=== PATIENT | male | born 1990 | race Caucasian/White ===

== ENCOUNTER 2017-09-16 19:06 | Inpatient (IN) | payer MEDICAID ==
[~2017-09-16] VITALS: Ht 170.2 cm; Wt 67.0 kg
[~2017-09-16 19:06] MED LIST: CEPH500C5 PO; CYCL-1 PO; HYDR-569 PO; ONDA4TAB12 PO; SULF1TAB49 PO
[2017-09-16] MEDS ORDERED: TETanus/Pertussis (Acell)/Diphther VAC/PF (Tdap-Adult) 0.5ml syringe IMVAC ONE (20:50)
[2017-09-16] MEDS ORDERED: CefTRIAXone 2gm/D5W 50ml 50 ML IV ONE (20:50)
[2017-09-16] MEDS ORDERED: vancomycin/NS 1 GM ADD-VANTAGE 250 ML X 1 DOSE IV ONE (20:55)
[2017-09-16] MEDS ORDERED: temazepam 15mg capsule PO PRN (21:00)
[2017-09-16] MEDS ORDERED: CEPH250T PO (21:41)
[2017-09-16] MEDS ORDERED: SULF1TAB49 PO (21:41)
[2017-09-16 21:51] LABS: BASOPHILS % (AUTO) 0.3 % (0-1); EOSINOPHILS # (AUTO) 0.2 X10'3 (0-0.9); EOSINOPHILS % (AUTO) 1.8 % (0-6); HEMATOCRIT 45.6 % (42.0-52.0); HEMOGLOBIN 15.7 g/dl (14.0-17.9); LYMPHOCYTES # (AUTO) 2.7 X10'3 (1.1-4.8); LYMPHOCYTES % (AUTO) 20.8 % (21-51); MEAN CORPUSCULAR HEMOGLOBIN 29.6 PG (27.0-31.0); MEAN CORPUSCULAR HGB CONC 34.5 % (33.0-36.5); MEAN CORPUSCULAR VOLUME 85.9 FL (78-98); MEAN PLATELET VOLUME 7.2 FL (7.4-10.4); MONOCYTES # (AUTO) 1.2 X10'3 (0-0.9); MONOCYTES % (AUTO) 9.5 % (2-12); NEUTROPHILS # (AUTO) 8.8 X10'3 (1.8-7.7); NEUTROPHILS % (AUTO) 67.6 % (42-75); PLATELET COUNT 169 X10'3 (140-440); RED BLOOD COUNT 5.31 X10'6 (4.70-6.10); RED CELL DISTRIBUTION WIDTH 13.6 % (11.5-14.5); WHITE BLOOD COUNT 13.1 X10'3 (4.5-11.0)
[2017-09-16 22:11] LABS: ALANINE AMINOTRANSFERASE 26 U/L (12-78); ALBUMIN 4.1 G/DL (3.4-5.0); ALBUMIN/GLOBULIN RATIO 1.3 (1.1-1.5); ALKALINE PHOSPHATASE 52 IU/L (46-116); ANION GAP 10 (8-16); ASPARTATE AMINO TRANSFERASE 20 U/L (10-37); BILIRUBIN,TOTAL 0.4 MG/DL (0.1-1.0); BLOOD UREA NITROGEN 12 MG/DL (7-18); BUN/CREATININE RATIO 11.5 (5.4-32.0); CALCIUM 9.2 MG/DL (8.5-10.1); CHLORIDE 102 MMOL/L (99-107); CREATININE 1.04 MG/DL (0.60-1.10); GLUCOSE 100 MG/DL (70-104); POTASSIUM 4.1 MMOL/L (3.5-5.1); SODIUM 138 MMOL/L (135-145); TOTAL CARBON DIOXIDE 25.7 MMOL/L (24-32); TOTAL PROTEIN 7.3 G/DL (6.4-8.2); eGFR 86 ML/MIN
[2017-09-16] MEDS ORDERED: methylPREDNISolone sod succ 125mg/2ml vial IV ONE (22:35)
[2017-09-16] MEDS ORDERED: HYDROcodone/acetaminophen 5mg/325mg tablet PO ONE (22:35)
[2017-09-16] MEDS ORDERED: famotidine/PF 10 mg/ml inj IV ONE (22:35)
[2017-09-16] MEDS ORDERED: diphenhydrAMINE 50 mg/ml inj IV ONE (22:35)
[2017-09-16] MEDS ORDERED: famotidine 10mg tablet PO STA (22:49)
[2017-09-16] MEDS ORDERED: famotidine 20mg tablet PO ONE (23:05)
[2017-09-16] MEDS ORDERED: acetaminophen 650mg rectal suppository RC PRN (23:40)
[2017-09-16] MEDS ORDERED: diphenhydrAMINE 25mg capsule PO PRN (23:40)
[2017-09-16] MEDS ORDERED: HYDROcodone/acetaminophen 5mg/325mg tablet PO PRN (23:40)
[2017-09-16] MEDS ORDERED: HYDROmorphone inj. 0.5 MG/0.5 ML DISP.SYRIN IV PRN ×2 (23:40)
[2017-09-16] MEDS ORDERED: HYDROcodone/acetaminophen 10/325mg tab PO PRN (23:40)
[2017-09-16] MEDS ORDERED: mag hydrox/Alum hydrox/simeth 30ml oral suspension PO PRN (23:40)
[2017-09-16] MEDS ORDERED: diphenhydrAMINE 50 mg/ml inj IV PRN (23:40)
[2017-09-16] MEDS ORDERED: morphine 4 MG/ML inj SYRINge IV PRN ×2 (23:40)
[2017-09-16] MEDS ORDERED: bisacodyl 10mg suppository rectal RC PRN (23:40)
[2017-09-16] MEDS ORDERED: magnesium hydroxide 30ml (MOM) UD suspension PO PRN (23:40)
[2017-09-16] MEDS ORDERED: metoclopramide 5 mg/ml inj IV PRN (23:40)
[2017-09-16] MEDS ORDERED: acetaminophen 325mg tablet PO PRN ×2 (23:40)
[2017-09-16] MEDS ORDERED: ondansetron/PF 4mg/2ml inj IV PRN (23:40)
[2017-09-17 00:05] LABS: MAGNESIUM 2.2 MG/DL (1.5-2.4)
[2017-09-17 00:07] LABS: INR 2.9 INR; PARTIAL THROMBOPLASTIN TIME 41 SECONDS (22-32); PROTHROMBIN TIME 28.8 SECONDS (9.0-12.0)
[2017-09-17 00:16] VITALS: BP 143/86
[2017-09-17] MEDS: ceFAZolin 1GM/D5W- ADD-VANTAGE 50 ML IV SCH ×2 (00:52→07:59)
[2017-09-17] MEDS: fluconazole 100mg tablet PO SCH ×2 (00:52→08:58)
[2017-09-17 01:31] LABS: CLARITY,URINE CLEAR (Clear); COLOR,URINE YELLOW (Yellow); GLUCOSE, URINE NEGATIVE (Neg); KETONES,URINE NEGATIVE (Neg); LEUKOCYTE ESTERASE ,URINE NEGATIVE (Neg); NITRITES, URINE NEGATIVE (Neg); OCCULT BLOOD,URINE TRACE-INTACT (Neg); PH,URINE 6.5 (4.8-8.0); PROTEIN,URINE NEGATIVE (Neg); UROBILINOGEN,URINE 0.2 E.U/dL (0.2-1.0)
[2017-09-17 01:34] LABS: UA COLLECTION TYPE CLN CATCH MIDSTREAM
[2017-09-17 01:37] LABS: BACTERIA,URINE NONE SEEN /HPF (Neg); SQUAMOUS EPITHELIAL CELL,UR NONE SEEN /LPF (FEW)
[2017-09-17 01:38] LABS: RBC,URINE 0-2 /HPF (0-2); WBC,URINE NONE SEEN /HPF (0-4)
[2017-09-17 05:56] LABS: BASOPHILS % (AUTO) 0.2 % (0-1); EOSINOPHILS # (AUTO) 0.1 X10'3 (0-0.9); EOSINOPHILS % (AUTO) 1.3 % (0-6); HEMATOCRIT 48.9 % (42.0-52.0); HEMOGLOBIN 16.7 g/dl (14.0-17.9); LYMPHOCYTES # (AUTO) 1.1 X10'3 (1.1-4.8); LYMPHOCYTES % (AUTO) 9.3 % (21-51); MEAN CORPUSCULAR HEMOGLOBIN 29.8 PG (27.0-31.0); MEAN CORPUSCULAR HGB CONC 34.1 % (33.0-36.5); MEAN CORPUSCULAR VOLUME 87.5 FL (78-98); MEAN PLATELET VOLUME 7.4 FL (7.4-10.4); MONOCYTES # (AUTO) 0.1 X10'3 (0-0.9); MONOCYTES % (AUTO) 1.2 % (2-12); PLATELET COUNT 182 X10'3 (140-440); RED BLOOD COUNT 5.59 X10'6 (4.70-6.10); RED CELL DISTRIBUTION WIDTH 13.7 % (11.5-14.5); WHITE BLOOD COUNT 11.4 X10'3 (4.5-11.0)
[2017-09-17 06:00] VITALS: BP 109/67
[2017-09-17 06:22] LABS: ALANINE AMINOTRANSFERASE 29 U/L (12-78); ALBUMIN 4.1 G/DL (3.4-5.0); ALBUMIN/GLOBULIN RATIO 1.2 (1.1-1.5); ALKALINE PHOSPHATASE 54 IU/L (46-116); ANION GAP 10 (8-16); ASPARTATE AMINO TRANSFERASE 21 U/L (10-37); BILIRUBIN,TOTAL 0.3 MG/DL (0.1-1.0); BLOOD UREA NITROGEN 12 MG/DL (7-18); BUN/CREATININE RATIO 11.2 (5.4-32.0); CALCIUM 9.5 MG/DL (8.5-10.1); CHLORIDE 104 MMOL/L (99-107); CREATININE 1.07 MG/DL (0.60-1.10); GLUCOSE 157 MG/DL (70-104); POTASSIUM 4.8 MMOL/L (3.5-5.1); SODIUM 140 MMOL/L (135-145); TOTAL CARBON DIOXIDE 26.1 MMOL/L (24-32); TOTAL PROTEIN 7.6 G/DL (6.4-8.2); eGFR 82 ML/MIN
[2017-09-17] MEDS: docusate sod 100mg capsule PO SCH ×2 (07:58→20:34)
[2017-09-17] MEDS: lactobacillus rhamnosus 10,000 MMU CELLS/CAPSULE PO SCH ×2 (07:58→20:35)
[2017-09-17] MEDS ORDERED: cephalexin 500mg capsule PO SCH (08:00)
[2017-09-17] MEDS ORDERED: sulfamethoxazole/trimethoprim DS (800/160mg) tablet PO SCH (08:00)
[2017-09-17] MEDS ORDERED: heparin, porcine 5000 units/ml vial SQ SCH (08:00)
[2017-09-17] MEDS ORDERED: CEPHALEXIN MONOHYDRATE PO SCH (08:00)
[2017-09-17] MEDS: clotrimazole topical cream 15gm tube TP SCH ×2 (08:06→20:35)
[2017-09-17 10:00] VITALS: BP 123/73
[2017-09-17 17:20] LABS: INR 2.3 INR; PROTHROMBIN TIME 23.4 SECONDS (9.0-12.0)
[2017-09-17] MEDS ORDERED: phytonadione inj. 10 MG in normal saline 100ml IV soln 99 ML IV ONE (17:30)
[2017-09-17 18:36] VITALS: BP 128/74
[2017-09-17 22:32] VITALS: BP 127/61
[2017-09-18 06:00] VITALS: BP 130/91
[2017-09-18 06:04] LABS: INR 1.5 INR; PARTIAL THROMBOPLASTIN TIME 33 SECONDS (22-32); PROTHROMBIN TIME 15.7 SECONDS (9.0-12.0)
[2017-09-18 06:08] LABS: BASOPHILS % (AUTO) 0.2 % (0-1); EOSINOPHILS # (AUTO) 0.1 X10'3 (0-0.9); EOSINOPHILS % (AUTO) 1.1 % (0-6); HEMATOCRIT 49.7 % (42.0-52.0); LYMPHOCYTES # (AUTO) 2.6 X10'3 (1.1-4.8); LYMPHOCYTES % (AUTO) 18.7 % (21-51); MEAN CORPUSCULAR HEMOGLOBIN 29.9 PG (27.0-31.0); MEAN CORPUSCULAR HGB CONC 34.2 % (33.0-36.5); MEAN CORPUSCULAR VOLUME 87.4 FL (78-98); MEAN PLATELET VOLUME 7.6 FL (7.4-10.4); MONOCYTES # (AUTO) 1.1 X10'3 (0-0.9); MONOCYTES % (AUTO) 8.1 % (2-12); NEUTROPHILS % (AUTO) 71.9 % (42-75); PLATELET COUNT 199 X10'3 (140-440); RED BLOOD COUNT 5.69 X10'6 (4.70-6.10); RED CELL DISTRIBUTION WIDTH 13.9 % (11.5-14.5)
[2017-09-18 06:16] LABS: ALANINE AMINOTRANSFERASE 26 U/L (12-78); ALBUMIN/GLOBULIN RATIO 1.1 (1.1-1.5); ALKALINE PHOSPHATASE 54 IU/L (46-116); ANION GAP 10 (8-16); ASPARTATE AMINO TRANSFERASE 20 U/L (10-37); BILIRUBIN,TOTAL 0.6 MG/DL (0.1-1.0); BLOOD UREA NITROGEN 23 MG/DL (7-18); BUN/CREATININE RATIO 24.2 (5.4-32.0); CALCIUM 9.3 MG/DL (8.5-10.1); CHLORIDE 105 MMOL/L (99-107); CREATININE 0.95 MG/DL (0.60-1.10); GLUCOSE 106 MG/DL (70-104); POTASSIUM 4.3 MMOL/L (3.5-5.1); SODIUM 140 MMOL/L (135-145); TOTAL CARBON DIOXIDE 24.7 MMOL/L (24-32); TOTAL PROTEIN 7.6 G/DL (6.4-8.2); eGFR > 90 ML/MIN
[2017-09-18] MEDS: docusate sod 100mg capsule PO SCH (07:27)
[2017-09-18] MEDS: lactobacillus rhamnosus 10,000 MMU CELLS/CAPSULE PO SCH (07:27)
[2017-09-18 10:17] VITALS: BP 116/77
[2017-09-18] MEDS ORDERED: sulfamethoxazole/trimethoprim DS (800/160mg) tablet PO SCH (12:10)
[2017-09-18] MEDS ORDERED: iohexol 300mg/ml 100ml inj. ONE (15:02)
[2017-09-18] MEDS: clotrimazole topical cream 15gm tube TP SCH (15:31)
== END 2017-09-18 16:45 | disposition left against medical advice (07) | DRG 383 ==
LOC: ER 19:07 → ED HOLD 23:25 → EDBEDREQ 23:51 → ORTHO 4S 09-17 00:07
PROVIDERS: ADMIT Family Medicine; ATTEND Family Medicine
PROC: BQ2D1ZZ Computerized Tomography (CT Scan) of Right Lower Leg using Low Osmolar Contrast (ICD-10-PCS; principal; 2017-09-18)
DX: L03.115 Cellulitis of right lower limb (principal); D68.9 Coagulation defect, unspecified; F31.9 Bipolar disorder, unspecified; F12.90 Cannabis use, unspecified, uncomplicated; E56.1 Deficiency of vitamin K; B35.3 Tinea pedis; M79.5 Residual foreign body in soft tissue; Z53.21 Procedure and treatment not carried out due to patient leaving prior to being seen by health care provider; Z88.8 Allergy status to other drugs, medicaments and biological substances; Z79.899 Other long term (current) drug therapy
CPT/HCPCS: 36415; 73630; 73701; 80053; 81001; 83605; 83735; 85025; 85384; 85610; 85730; 86146; 86147; 86803; 87040; 87070; 87075; 87102; 90715; J0690; J0696; J1200; J2930; J3370; J3430; J3490; J7030; Q9967

== ENCOUNTER 2019-10-11 08:22 | Emergency (ER) | payer MEDICAID ==
[~2019-10-11] VITALS: Ht 172.7 cm; Wt 68.0 kg
[~2019-10-11 08:22] MED LIST changes: +CEPH250T PO; -CEPH500C5 PO; -CYCL-1 PO; -HYDR-569 PO; -ONDA4TAB12 PO
[2019-10-11] MEDS ORDERED: normal saline 1000ML IV soln IVB ONE (09:05)
[2019-10-11] MEDS ORDERED: ondansetron/PF 4mg/2ml inj IV ONE (09:05)
[2019-10-11] MEDS ORDERED: meclizine 12.5mg tablet PO ONE (09:05)
[2019-10-11 09:34] LABS: BASOPHILS # (AUTO) 0.1 X10'3 (0-0.2); BASOPHILS % (AUTO) 0.8 % (0-1); EOSINOPHILS # (AUTO) 0.1 X10'3 (0-0.9); HEMATOCRIT 50.3 % (42.0-52.0); HEMOGLOBIN 17.1 g/dl (14.0-17.9); LYMPHOCYTES # (AUTO) 2.1 X10'3 (1.1-4.8); LYMPHOCYTES % (AUTO) 29.1 % (21-51); MEAN CORPUSCULAR HEMOGLOBIN 29.4 PG (27.0-31.0); MEAN CORPUSCULAR VOLUME 86.6 FL (78-98); MEAN PLATELET VOLUME 7.1 FL (7.4-10.4); MONOCYTES # (AUTO) 0.8 X10'3 (0-0.9); MONOCYTES % (AUTO) 11.5 % (2-12); NEUTROPHILS # (AUTO) 4.1 X10'3 (1.8-7.7); NEUTROPHILS % (AUTO) 56.6 % (42-75); PLATELET COUNT 190 X10'3 (140-440); RED BLOOD COUNT 5.81 X10'6 (4.70-6.10); RED CELL DISTRIBUTION WIDTH 14.1 % (11.5-14.5); WHITE BLOOD COUNT 7.2 X10'3 (4.5-11.0)
[2019-10-11 09:41] LABS: ALANINE AMINOTRANSFERASE 20 U/L (12-78); ALBUMIN 4.3 G/DL (3.4-5.0); ALBUMIN/GLOBULIN RATIO 1.4 (1.1-1.5); ALKALINE PHOSPHATASE 53 IU/L (46-116); ANION GAP 8 (8-16); ASPARTATE AMINO TRANSFERASE 18 U/L (10-37); BILIRUBIN,TOTAL 0.4 MG/DL (0.1-1.0); BLOOD UREA NITROGEN 9 MG/DL (7-18); BUN/CREATININE RATIO 9.4 (5.4-32.0); CALCIUM 9.2 MG/DL (8.5-10.1); CHLORIDE 104 MMOL/L (99-107); CREATININE 0.96 MG/DL (0.60-1.10); GLUCOSE 100 MG/DL (70-104); POTASSIUM 4.1 MMOL/L (3.5-5.1); SODIUM 138 MMOL/L (135-145); TOTAL CARBON DIOXIDE 26.5 MMOL/L (24-32); TOTAL PROTEIN 7.3 G/DL (6.4-8.2); eGFR > 90 ML/MIN
[2019-10-11] MEDS ORDERED: MECL-159 PO (10:07)
[2019-10-11 10:27] VITALS: BP 131/82
== END 2019-10-11 10:28 | disposition home or self-care (01) ==
LOC: ER 08:23
DX: R42 Dizziness and giddiness (principal); F31.9 Bipolar disorder, unspecified; F12.90 Cannabis use, unspecified, uncomplicated; Z88.1 Allergy status to other antibiotic agents; Z88.8 Allergy status to other drugs, medicaments and biological substances; Z79.899 Other long term (current) drug therapy
CPT/HCPCS: 36415; 80053; 85025; 93005; 96360; 99284; J7030; J8597

== ENCOUNTER 2020-02-21 02:52 | Emergency (ER) | payer MEDICAID ==
[~2020-02-21] VITALS: Ht 170.2 cm; Wt 69.1 kg
[~2020-02-21 02:52] MED LIST changes: +MECL-159 PO
[2020-02-21 02:53] VITALS: BP 136/75
--- NOTE | 2020-02-21 03:36 | NUR ---
pt is resting quietly on gurney, resp even and unlabored, +cms to rt foot, pt has decreased ROM to leg due to pain, unable to straighten leg,
[2020-02-21] MEDS ORDERED: HYDROcodone/acetaminophen 10/325mg tab PO STA (03:38)
[2020-02-21] MEDS ORDERED: ondansetron 4mg rapidly disintigrating tab PO ONE (03:50)
[2020-02-21] MEDS ORDERED: ONDA4TAB6 PO (03:51)
[2020-02-21] MEDS ORDERED: HYDR-4353 PO (03:51)
== END 2020-02-21 05:15 | disposition home or self-care (01) ==
LOC: ER 02:53
DX: S82.001A Unspecified fracture of right patella, initial encounter for closed fracture (principal); M23.91 Unspecified internal derangement of right knee; F31.9 Bipolar disorder, unspecified; F12.90 Cannabis use, unspecified, uncomplicated; Z88.1 Allergy status to other antibiotic agents; Z91.018 Allergy to other foods; Z79.2 Long term (current) use of antibiotics; Z79.899 Other long term (current) drug therapy; W01.0XXA Fall on same level from slipping, tripping and stumbling without subsequent striking against object, initial encounter; Y93.89 Activity, other specified; Y92.89 Other specified places as the place of occurrence of the external cause; Y99.8 Other external cause status
CPT/HCPCS: 29105; 29505; 73564; 99284

== ENCOUNTER 2021-11-13 10:32 | Emergency (ER) | payer MEDICAID ==
[~2021-11-13] VITALS: Ht 170.2 cm; Wt 70.5 kg
[~2021-11-13 10:32] MED LIST changes: +ONDA4TAB6 PO
[2021-11-13] MEDS ORDERED: CefTRIAXone 1000mg IM Kit (w/lidocaine diluent) IM ONE (11:10)
[2021-11-13] MEDS ORDERED: azithromycin 250mg tablet PO ONE (11:10)
[2021-11-13 11:27] VITALS: BP 143/92
[2021-11-13 12:29] LABS: UA COLLECTION TYPE CLN CATCH MIDSTREAM
[2021-11-13 12:30] LABS: CLARITY,URINE CLEAR (Clear); COLOR,URINE YELLOW (Yellow); GLUCOSE, URINE NEGATIVE (Neg); KETONES,URINE NEGATIVE (Neg); LEUKOCYTE ESTERASE ,URINE TRACE (Neg); NITRITES, URINE NEGATIVE (Neg); OCCULT BLOOD,URINE TRACE-INTACT (Neg); PH,URINE 6.5 (4.8-8.0); PROTEIN,URINE NEGATIVE (Neg); UROBILINOGEN,URINE 0.2 E.U/dL (0.2-1.0)
[2021-11-13 12:43] LABS: BACTERIA,URINE FEW /HPF (Neg); RBC,URINE NONE SEEN /HPF (0-2); SQUAMOUS EPITHELIAL CELL,UR FEW /LPF (FEW); WBC CLUMPS,URINE FEW /HPF (NEGATIVE)
== END 2021-11-13 12:16 | disposition home or self-care (01) ==
LOC: ER 10:32
DX: R30.0 Dysuria (principal); R36.9 Urethral discharge, unspecified; F31.9 Bipolar disorder, unspecified; F12.90 Cannabis use, unspecified, uncomplicated; Z11.3 Encounter for screening for infections with a predominantly sexual mode of transmission; Z88.1 Allergy status to other antibiotic agents; Z88.8 Allergy status to other drugs, medicaments and biological substances
CPT/HCPCS: 36415; 81001; 87088; 87491; 87591; 96372; 99283; J0696

== ENCOUNTER 2023-03-29 19:22 | Emergency (ER) | payer MEDICAID ==
[~2023-03-29] VITALS: Ht 170.2 cm; Wt 68.6 kg
[~2023-03-29 19:22] MED LIST changes: -MECL-159 PO; +MECL-302 PO
[2023-03-29 20:36] LABS: BILIRUBIN,URINE NEGATIVE (Neg); CLARITY,URINE CLEAR (Clear); COLOR,URINE YELLOW (Yellow); GLUCOSE, URINE NEGATIVE (Neg); KETONES,URINE NEGATIVE (Neg); LEUKOCYTE ESTERASE ,URINE NEGATIVE (Neg); NITRITES, URINE NEGATIVE (Neg); OCCULT BLOOD,URINE NEGATIVE (Neg); PROTEIN,URINE NEGATIVE (Neg); UROBILINOGEN,URINE 0.2 E.U/dL (0.2-1.0)
[2023-03-29 20:40] LABS: UA COLLECTION TYPE CLN CATCH MIDSTREAM
[2023-03-30 01:25] VITALS: BP 127/80; PULSE 74; RESP 16; TEMP 97.8; O2SAT 98
== END 2023-03-30 01:26 | disposition home or self-care (01) ==
LOC: ER 19:23
DX: R51.9 Headache, unspecified (principal); G93.0 Cerebral cysts
CPT/HCPCS: 36415; 70450; 72125; 81003; 87491; 99284

== ENCOUNTER 2024-01-18 17:19 | Emergency (ER) | payer MEDICAID ==
[~2024-01-18] VITALS: Ht 170.2 cm; Wt 65.4 kg
[2024-01-18 17:21] VITALS: BP 144/85; PULSE 93; RESP 16; O2SAT 99
[2024-01-18] MEDS: TETanus/Pertussis (Acell)/Diphther VAC/PF (Tdap-Adult) 0.5ml syringe IMVAC ONE (17:55)
[2024-01-18] MEDS: LIDOcaine 1% 30ml preserv. free vial IJ ONE (18:22)
[2024-01-18 18:39] VITALS: TEMP 98
== END 2024-01-18 18:56 | disposition home or self-care (01) ==
LOC: ER 17:19
DX: S60.451A Superficial foreign body of left index finger, initial encounter (principal); Z88.1 Allergy status to other antibiotic agents; Z79.2 Long term (current) use of antibiotics; Z79.899 Other long term (current) drug therapy; X58.XXXA Exposure to other specified factors, initial encounter; Y93.89 Activity, other specified; Y92.89 Other specified places as the place of occurrence of the external cause; Y99.8 Other external cause status
CPT/HCPCS: 90471; 90715; 99284; A6449

== ENCOUNTER 2024-04-29 08:58 | Emergency (ER) | payer MEDICAID ==
[~2024-04-29] VITALS: Ht 170.2 cm; Wt 63.9 kg
[2024-04-29 09:03] VITALS: BP 128/71; PULSE 86; RESP 18; TEMP 97.8; O2SAT 99
[2024-04-29] MEDS ORDERED: HYDR-3965 PO (09:53)
[2024-04-29] MEDS ORDERED: AMOX-580 PO (09:53)
== END 2024-04-29 10:17 | disposition home or self-care (01) ==
LOC: ER 08:58
DX: K02.9 Dental caries, unspecified (principal); K08.89 Other specified disorders of teeth and supporting structures; F12.90 Cannabis use, unspecified, uncomplicated; Z88.1 Allergy status to other antibiotic agents; Z88.8 Allergy status to other drugs, medicaments and biological substances; Z87.440 Personal history of urinary (tract) infections
CPT/HCPCS: 99283

== ENCOUNTER 2024-05-02 09:46 | Emergency (ER) | payer MEDICAID ==
[~2024-05-02] VITALS: Ht 170.2 cm; Wt 65.5 kg
[~2024-05-02 09:46] MED LIST changes: +AMOX-580 PO; +HYDR-3965 PO
[2024-05-02 09:49] VITALS: TEMP 97.3
[2024-05-02] MEDS: metoclopramide 5 mg/ml inj IV ONE (10:32)
[2024-05-02] MEDS: diphenhydrAMINE 50 mg/ml inj IV ONE (10:32)
[2024-05-02] MEDS ORDERED: FIOCOC PO (12:33)
[2024-05-02 12:47] VITALS: BP 144/89; PULSE 69; RESP 16; O2SAT 99
== END 2024-05-02 12:56 | disposition home or self-care (01) ==
LOC: ER 09:47
DX: G43.909 Migraine, unspecified, not intractable, without status migrainosus (principal); Z88.1 Allergy status to other antibiotic agents; Z88.5 Allergy status to narcotic agent; Z79.2 Long term (current) use of antibiotics; Z87.440 Personal history of urinary (tract) infections
CPT/HCPCS: 70450; 96374; 96375; 99285; J1200; J2765